=== PATIENT | male | born 1950 | race Caucasian/White ===

== ENCOUNTER 2016-11-05 15:58 | Emergency (ER) | payer MEDICARE, OTHER | END 2016-11-05 17:48 | disposition home or self-care (01) | LOC: ER 15:58 | PROC: 2W3EX1Z Immobilization of Right Hand using Splint (ICD-10-PCS; principal; 2016-11-05) | DX: S62.306A Unspecified fracture of fifth metacarpal bone, right hand, initial encounter for closed fracture (principal); K21.9 Gastro-esophageal reflux disease without esophagitis | CPT/HCPCS: 70450; 73130-RT; 90471; 90714; 99284 ==